=== PATIENT | male | born 1945 | race Caucasian/White ===

== ENCOUNTER 2019-04-08 16:55 | Observation (INO) | payer MEDICARE, MEDICAID, SELFPAY ==
[2019-04-08 16:56] VITALS: BP 154/74; PULSE 72; RESP 15; TEMP 36.8; BMI 18.8
[2019-04-08 17:02] VITALS: O2SAT 100
[2019-04-08] MEDS: Morphine 4 MG/ML Syringe IV ×2 (18:02→19:14)
[2019-04-08] MEDS: predniSONE 20 MG Tablet 60 MG PO (18:02)
--- NOTE | 2019-04-08 18:36 | ED.VIS.BACK ---
History of Present Illness Chief Complaint: Back Informant: Patient Onset: Days Context: Gradual Onset Injury: Lifting, Twisting Timing: Continuous Quality: Sharp Location: Lumbar - right Worsened by: improves with: Movement Relieved by: Remaining Still Narrative: Patient is a 73-year-old male with history of oral pharyngeal cancer status post resection presenting with low back pain. Patient states on Friday, 4 days ago, he was lifting a bag of cement and felt a pull in his right lower back. Since then he has had low back pain. He notes today he was try to get into his truck and twisted slightly. He then had severe low back pain in the same spot. He denies any radiation of pain. He denies any numbness or tingling in his perineal region or in his legs. He denies any difficulty urinating or incontinence. He states he had pain like this in the past and sees a chiropractor. He laid down on the couch but then the pain was so bad he could not get off the couch so his called 911. Patient's been taking Aleve prior to this. He denies any other complaints at this time. He denies any trauma or falls. Prior similar symptoms: Yes, With Prior Back Pain Past Medical History - Allergies and Home Meds Allergies/Adverse Reactions: Allergies No Known Allergies Allergy (Verified 01/26/17 17:32) Past Medical History: - - COPD, skin cancer, tongue cancer Surgical History: noncontributory Lives: Spouse/ Significant Other Smoking Status: Former smoker Alcohol: None Drugs: None - Family History Maternal Family History: Reports: Cancer Sibling Family History: Reports: Heart Disease Paternal Family History: Reports: Unknown Review of Systems General: Denies: Chills, Fever, Sweats Eyes: Denies: Visual changes - bilaterally, Diplopia ENT: Denies: Rhinorrhea, Sore throat Cardiovascular: Denies: Chest pain, Palpitations Respiratory: Denies: Dyspnea, Cough, Dyspnea on exertion Gastrointestinal: Denies: Abdominal pain, Nausea, Vomiting, Diarrhea, Melena, Hematochezia Genitourinary: Denies: Dysuria, Hematuria, Frequency Musculoskeletal: Reports: Back pain. Denies: Neck pain, Extremity Pain Skin: Denies: Rash, Wounds Neurological: Denies: Headache, Weakness, Numbness Physical Exam Vital Signs/Narrative: Vital Signs Temp Pulse Resp BP Pulse Ox 12/05/19 17:02 100 04/08/19 16:56 98.2 F 72 15 154/74 H Inital Vital Signs reviewed: Yes General: Well nourished, Well developed Head: Normocephalic, Atraumatic Eyes: Perrl, EOMI ENT: Moist mucous membranes, No rhinorrhea, - - Edentulous Neck: Supple, Nontender Cardiovascular: Regular rate, Regular rhythm, No murmurs Respiratory: No distress, CTA bilaterally, Chest nontender Abdomen: Soft, Nontender, Nondistended, Normal bowel sounds Back: Normal Inspection, Paraspinal Tenderness - Right paraspinal. Negative for: Spinal tenderness, Positive SLR - Right, Positive SLR - Left Extremeties: Nontender, No edema, Symmetric. Negative for: Tenderness, Edema Skin: Normal color, No rash Neuro: Alert, Oriented, Normal Strength, Normal Sensation, - - Gait not tested secondary to pain Psychological: Normal affect Diagnostic/Tx/Re-eval Laboratory Data 04/08/19 04/08/19 20:30 20:30 WBC 9.4 RBC 4.48 L Hgb 13.6 Hct 40.1 MCV 89.5 MCH 30.4 MCHC 33.9 RDW Std Deviation 40.7 RDW Coeff of Michael 12.4 Plt Count 196 MPV 10.2 Immature Gran % (Auto) 0.300 Neut % (Auto) 89.3 H Lymph % (Auto) 7.4 L [place] % (Auto) 2.4 Eos % (Auto) 0.4 Baso % (Auto) 0.2 Absolute Neuts (auto) 8.4 H Absolute Lymphs (auto) 0.70 L Nucleated RBC % 0 Sodium 138 Potassium 4.0 Chloride 106 Carbon Dioxide 25.0 Anion Gap 7 BUN 14 Creatinine 0.95 Estim Creat Clear Calc 63.47 Est GFR (MDRD) Af Amer 99 Est GFR (MDRD) Non-Af 82 BUN/Creatinine Ratio 14.7 Glucose 136 H Calcium 8.7 - Medical Decision Making Patient is evaluated for low back pain. Patient pulled what felt like a muscle in his lower back a couple days ago and it acutely worsened today. The pain is reproducible with palpation and movement. He does not have a pulsatile mass in his abdomen. He is hemodynamically stable. He is mildly hypertensive I attribute this to his pain. He denies any other associated symptoms. He does not have any red flag symptoms for cauda equina syndrome. He has a normal neurologic exam. He does not have any midline tenderness. Do not think imaging is indicated. He is initially given prednisone and morphine. We did ambulate him and this was unsuccessful secondary to his pain. Patient was given another dose of morphine as well as Valium. Patient was able to ambulate but not very well and with significant pain still. Patient do not feel comfortable going home because of his amount of pain. I feel that this is reasonable. Patient will be admitted for medical management and physical therapy of his back pain. Again I think this is muscle skeletal and patient is hemodynamically stable at time of disposition. He is agreeable with this plan. ED Disposition - Plan for ED Patient: Disposition: Acute Care [facility] Diagnosis: Intractable low back pain
[2019-04-08] MEDS: diazePAM 5 MG Tablet 2.5 MG PO (19:15)
[2019-04-08 19:21] VITALS: BP 111/77; PULSE 61; RESP 16; O2SAT 96
[2019-04-08 20:04] VITALS: TEMP 35.5
[2019-04-08] MEDS: HYDROmorphone 1 MG/ML Syringe 0.5 MG IV (20:38)
[2019-04-08] MEDS: 0.9% Normal Saline 1,000 ML 1000 ML IV (20:38)
[2019-04-08 20:45] LABS: Absolute Neutrophil Count 8.4 X10^3/uL (2.0-7.7); Basophil# 0.02 X10^3/uL; Basophil% 0.2 % (0-1); Eosinophil# 0.04 X10^3/uL; Eosinophils% 0.4 % (0-5); Hematocrit 40.1 % (40-54); Hemoglobin 13.6 g/dL (13.0-16.5); Lymphocyte % 7.4 % (19-41); Mean Corp Hgb Conc 33.9 g/dL (32-36); Mean Corpuscular Hgb 30.4 pg (27.0-32.0); Mean Corpuscular Volume 89.5 fL (80-94); Mean Platelet Vol. 10.2 fl (6.2-12.0); Monocyte# 0.23 X10^3/uL; Monocyte% 2.4 % (0-10); NRBC Flagged by Analyzer 0 % (0-5); Neutrophil % 89.3 % (47-70); Platelet Count 196 K/mm3 (150-450); RBC Distribution Width CV 12.4 % (11.6-14.6); RBC Distribution Width SD 40.7 fl (35.1-43.9); Red Blood Count 4.48 M/mm3 (4.6-6.2); White Blood Count 9.4 K/mm3 (4.4-11.0)
[2019-04-08 21:03] LABS: Anion Gap 7 (5-15); BUN 14 mg/dL (7-18); BUN/Creat Ratio 14.7 RATIO (10-20); Calcium,Total 8.7 mg/dL (8.5-10.1); Chloride 106 mmol/L (98-107); Creatinine, Serum 0.95 mg/dL (0.70-1.30); EST Glomerular Filtration Rate 82 mL/min (>60); Est Glom Filt Rate - Afr Amer 99 mL/min (>60); Estimated Creatinine Clearance 63.47 ml/min; Glucose 136 mg/dL (74-106); Sodium Level 138 mmol/L (136-145)
--- NOTE | 2019-04-08 21:06 | HP.PCM_ITS ---
History of Present Illness Date of Admission: 04/08/19 Chief Complaint: Right-sided back pain The patient is a 73 year old M [facility] as below who presents with right-sided back pain. He says that it started on Friday when he lifted a bag of cement. He was having difficulty with his back pain during the week and then today he was getting into his pickup truck and he twisted his back and had such significant back pain that he was unable to get up and walk. He denies any radiation of his pain down either of his legs, and has no bowel or bladder dysfunction. He denies any perineal numbness, and his tenderness is not in his mid back but on the right paraspinal muscle. In the ER lab work was still pending during my examination, and he received several doses of morphine as well as a dose of Valium without much relief. Past Medical History Past Medical History (Chronic Problems): Chronic Problems Hx of tongue cancer (Chronic) Personal history of skin cancer (Chronic) Acute exacerbation of chronic obstructive airways disease (Chronic) Allergies No Known Allergies Allergy (Verified 01/26/17 17:32) Home Medications: Ambulatory Orders Medication Instructions Recorded Naproxen Sodium [Aleve] 220 mg PO DAILY PRN PRN 04/08/19 Surgical History: - - Tongue resection and jaw reconstruction after oropharyngeal cancel Lives: Spouse/ Significant Other Smoking Status: Former smoker Tobacco Use: Cigarettes Alcohol: None Drugs: None - *Family History Maternal History Items: Cancer Sibling History Items: Heart Disease Paternal History Items: Unknown Review of Systems Constitutional: Denies: Chills, Fever, Weight Change HEENT: Denies: Head Aches, Sinus Congestion, Sinus Drainage Cardiovascular: Denies: Chest Pain, Palpitations Respiratory: Denies: Cough, Shortness of breath at rest, Sputum production Gastrointestinal: Denies: Abdominal Pain, Nausea, Vomiting Genitourinary: Denies: Dysuria Musculoskeletal: Reports: Back Pain - Right paraspinal muscle. Denies: Joint Pain, Joint Tenderness Skin: Denies: Rash, Wounds Neurological: Denies: Numbness, Tingling, Focal weakness Psychiatric: Denies: Anxiety, Depression Hematologic/ Lymphatic: Denies: Easy Bruising, Easy Bleeding VTE Information - Inpt Only VTE Present on Admission: No - Physical Exam Vitals/I&O's: Vital Signs Temp Pulse Resp BP Pulse Ox 96 F L 61 16 111/77 96 04/08/19 20:04 04/08/19 19:21 04/08/19 19:21 04/08/19 19:21 04/08/19 19:21 Oxygen Delivery Method Room Air Weight: 142 lb 13.753 oz Body Mass Index (BMI) 18.8 General: Alert, Oriented x3, Cooperative, No apparent distress HEENT: Atraumatic, PERRLA, EOMI, Normocephalic Oral: Dry Mucosa Neck: Supple, No JVD Lungs: Clear to auscultation, Normal air movement, No rhonchi, No wheeze, No rales, Diminished Cardiovascular: Regular rate, Regular Rhythm, Normal S1, Normal S2, No murmurs Abdomen: Soft, Non Tender, Non-Distended, No Hepato-splenomegaly Extremities: No edema, Capillary Refill Less than 3 Seconds Skin: No rashes, No breakdown Musculoskeletal: Tenderness - To right paraspinal muscle manipulation, - - Back pain with right straight leg raise, no sensation of pain down his leg Neurological: Neuro grossly intact, Sensory exam intact to light touch and pain Psych/Mental Status: Normal Affect, Appropriate Laboratory Results 04/08/19 20:30: WBC 9.4, RBC 4.48 L, Hgb 13.6, Hct 40.1, MCV 89.5, MCH 30.4, MCHC 33.9, RDW Std Deviation 40.7, RDW Coeff of Michael 12.4, Plt Count 196, MPV 10.2, Immature Gran % (Auto) 0.300, Neut % (Auto) 89.3 H, Lymph % (Auto) 7.4 L, [place] % (Auto) 2.4, Eos % (Auto) 0.4, Baso % (Auto) 0.2, Absolute Neuts (auto) 8.4 H, Absolute Lymphs (auto) 0.70 L, Nucleated RBC % 0 04/08/19 20:30: Sodium 138, Potassium 4.0, Chloride 106, Carbon Dioxide 25.0, Anion Gap 7, BUN 14, Creatinine 0.95, Estim Creat Clear Calc 63.47, Est GFR (MDRD) Af Amer 99, Est GFR (MDRD) Non-Af 82, BUN/Creatinine Ratio 14.7, Glucose 136 H, Calcium 8.7 Current Medications Sodium Chloride () 1,000 mls @ 1,000 mls/hr IV .Q1H ONE Stop: 04/08/19 21:30 Last Admin: 04/08/19 20:38 Dose: 1,000 mls/hr Documented by: Assessment/Plan 1. Right sided paraspinal muscle pain and intractable back pain -He is received multiple doses of narcotics in the ER, will hold off on any narcotics during his inpatient stay -We will continue with ibuprofen and Flexeril, can also add Valium if necessary -PT and OT for evaluation -No red flag at this moment to warrant an MRI, no fevers or chills and no midline tenderness 2. History of oropharyngeal cancer -He is status post resection and reconstruction about 5 years ago -given the lack of midline tenderness, do not think that there is any bony metastasis from his cancer 5 years ago DVT: Ambulation Code Visit OBSV E&M: 39983 Initial observation care L2
[2019-04-08 21:28] VITALS: BMI 17.6; BMI 18.8
[2019-04-08 21:30] VITALS: BP 135/71; PULSE 65; RESP 18; TEMP 36.2; O2SAT 96
[2019-04-09 03:20] VITALS: BP 121/66; PULSE 63; RESP 18; TEMP 36.3; O2SAT 97
[2019-04-09] MEDS: cycloBENZAPRine HCl 10 MG Tablet PO ×3 (06:27→22:35)
[2019-04-09 08:39] VITALS: BP 96/50; PULSE 74; RESP 20; TEMP 36.4; O2SAT 96
[2019-04-09 09:00] VITALS: BP 96/50; PULSE 74; RESP 20; TEMP 36.4; O2SAT 96
--- NOTE | 2019-04-09 09:04 | CASEMGMT ---
Social Work Note Per admissions assistant questions, pt has completed LW and HCPOA but hasn't provided copy to [facility] and is not able to bring in copies. Ann Lara INJECTION MOLDING TECHNICIAN, MATRIX BATH ATTENDANT
--- NOTE | 2019-04-09 09:47 | PCM.PROGNOTE ---
Patient Problems: Active and Suspected Problems Intractable low back pain (Acute) Subjective: The patient is a 73-year-old male with a past medical history of cancer of the tongue, skin cancer and COPD who is on no chronic medications at home who presented to the ED at [facility] on 04/08/19 complaining of severe back pain with inability to ambulate. No XRAYS were done of the back in the ED. He received several dose of MS and Valium in the ED last night with no significant improvement. CBC and BMP at admission were unremarkable. He was admitted to the hospital and placed on PRN Motrin and Flexeril. Nursing tells me that the flexeril seemed to work well for him this morning. He rates his pain jasper a 3-4 when lying in bed and an 8-9 when ambulating and bearing weight. He denies any falls. Denies any recent weight loss. Denies any radiation of pain into the legs and also denies urinary or fecal incontinence. No hx of chronic back pain. - Physical Exam Vitals/I&O's: Vital Signs Temp Pulse Resp BP Pulse Ox 97.5 F L 74 20 H 96/50 L 96 04/09/19 08:39 04/09/19 08:39 04/09/19 08:39 04/09/19 08:39 04/09/19 08:39 Oxygen Delivery Method Room Air Weight: 134 lb 4.184 oz Body Mass Index (BMI) 17.6 Intake and Output for Last 24 Hours 04/07/19 04/08/19 04/09/19 23:59 23:59 23:59 Intake Total 1000 / 1000 Output Total 600 / 600 Balance 1000 / 1000 -600 / -600 General: Alert, Oriented x3, Cooperative, No apparent distress - lying in bed HEENT: Atraumatic, PERRLA, EOMI, Normocephalic Oral: Moist Mucosa Neck: Supple, No Nodes, No Nuchal Rigidity, Trachea Midline Lungs: Clear to auscultation Cardiovascular: Regular rate, Regular Rhythm, Normal S1, Normal S2, No Gallop Abdomen: Bowel Sounds Present, Soft, Non Tender, Non-Distended, - - No guarding with palpation Extremities: No edema Skin: No rashes, No breakdown Neurological: - - Negative straight leg raising bilaterally. Negative Fidel's test bilaterally. 5/5 strength in both lower extremities. examination of the low back reveals no erythema and no ecchymosis. Pain is predominantly in the R low back. no significant Myospasm. Psych/Mental Status: Normal Affect, Appropriate Laboratory Results 04/08/19 20:30: WBC 9.4, RBC 4.48 L, Hgb 13.6, Hct 40.1, MCV 89.5, MCH 30.4, MCHC 33.9, RDW Std Deviation 40.7, RDW Coeff of Michael 12.4, Plt Count 196, MPV 10.2, Immature Gran % (Auto) 0.300, Neut % (Auto) 89.3 H, Lymph % (Auto) 7.4 L, [place] % (Auto) 2.4, Eos % (Auto) 0.4, Baso % (Auto) 0.2, Absolute Neuts (auto) 8.4 H, Absolute Lymphs (auto) 0.70 L, Nucleated RBC % 0 04/08/19 20:30: Sodium 138, Potassium 4.0, Chloride 106, Carbon Dioxide 25.0, Anion Gap 7, BUN 14, Creatinine 0.95, Estim Creat Clear Calc 63.47, Est GFR (MDRD) Af Amer 99, Est GFR (MDRD) Non-Af 82, BUN/Creatinine Ratio 14.7, Glucose 136 H, Calcium 8.7 Current Medications Cyclobenzaprine HCl (Flexeril) 10 mg PO TID PRN PRN PRN Reason: back pain Last Admin: 04/09/19 06:27 Dose: 10 mg Documented by: Ibuprofen (Motrin) 400 mg PO Q4H PRN PRN PRN Reason: Pain Score 1-3/Temp > 100.7 F Nutritional Formula (Lactose Free) (Ensure Enlive) 120 ml PO 4X/DAY [facility] Last Admin: 04/09/19 08:30 Dose: 120 ml Documented by: Sodium Chloride () 10 - 40 ml IV UD PRN PRN Reason: SALINE FLUSH Medical Necessity - Tobacco Use Smoking Status: Former smoker Tobacco Use: Cigarettes Assessment/Plan All Active Problems Intractable low back pain (Acute) Impressions 1. intractable low back pain with inability to ambulate. More likely than not secondary to strain. Plain XRAYS of the spine obtained today show no fx or dislocation. disc spaces appear to be well maintained. He does have some anterior spurs. Official radiology report is pending. There is a lot of stool in the R colon. There is calcification of the abd aorta. schedule Flexeril and Motrin TID. Re-evaluate in the AM PT will see him today. Code Visit OBSV E&M: 29521 Subsequent observation care L2
--- NOTE | 2019-04-09 12:10 | CASEMGMT ---
RN MORIAH ATTRACTION ATTENDANT CM to room to meet with patient for initial transition planning/care coordination assessment. RN MORIAH introduced self and role at [facility]. Pt voices understanding and consents to assessment at this time. Pt resting in bed in no distress at this time. Pt is A/O at this time and answers all questions appropriately. Care providers, pharmacy, and demographics verified/updated at this time. PCP: Dr Nataly Kidd Specialists: Denies Preferred Pharmacy: [facility] Insurance: [facility] Prescription Benefit: Yes Living Will/HPOA: has both LW and HCPOA, who is his ex-, Mya Pierson. Copies not found on file @ [facility]. Pt aware and states he thinks he knows where the paperwork is and will try to have brought in if he can locate them. Pt made aware if he is unable to locate them, that SW can assist him w/completing papework again if he chooses. Given Principal Systems Engineer Rac card and made aware can make an appt to come in as an out-pt if he would like to. Pt voices appreciation. LNOK: Only wanted ex- listed on demographics. Living Arrangements: Lives with his ex- in a one-story home w/3 steps to enter. is independent with Personal ADL's. States his ex- does the meals, grocery shopping, laundry, and cleaning. Transportation: Pt drives self and states no transportation concerns at this time. Mya also drives and will take him home @ discharge. DME: Denies using any DME and denies needs. has a walker but does not use it and thinks they have a shower chair available. HHC/SNF: No history of SNF. Has used HHC in the past but does not remember the name of the agency. Pt wishes to return home and has no concerns with going home at time of discharge. He states he is not sure if he would like to do OP therapy, stating last year when something similar happened, I just went to a chiropractor 3 times and then I was better. would be interested in getting a script for OP therapy so if he does decide to go, that he will have it. CM to follow for any further discharge planning/needs. Pt voices no further concerns/needs at this time. Advised pt to ask for CM if any further questions/concerns/needs arise. Voices understanding. PLAN: Home. States may be interested in doing OP therapy, but is unsure. He would like a script for OP therapy to take to a location of choice if he chooses to go to therapy. Moshe ODONNELLN RN CM
[2019-04-09] MEDS: Ibuprofen 600 MG Tablet PO ×2 (13:12→22:35)
[2019-04-09 16:01] VITALS: BP 104/51; PULSE 73; RESP 18; TEMP 36.4; O2SAT 95
--- NOTE | 2019-04-09 19:48 | NURSING ---
1946 Patient taken to Xray
--- NOTE | 2019-04-09 19:50 | RAD_ITS ---
STUDY: X-RAY - LUMBAR SPINE REASON FOR EXAM: Male, 73 years old. Severe low back pain after lifting cement 4 days ago TECHNIQUE: 3 view(s) of the lumbar spine were obtained. COMPARISON: None FINDINGS: Normal lumbar lordosis. There is no substantial scoliosis. There is a normal alignment of the vertebrae. There is multilevel endplate spondylosis of the lumbar vertebrae. There is multi-level degenerative disc disease with multi-level disc space narrowing. There is no demonstrated fracture. There is atherosclerotic calcification of the abdominal aorta without a demonstrated aneurysm. RAD/Lumbar Spine 2 or 3 Views IMPRESSION: Degenerative changes of the spine, as detailed above. Electronically Signed: Hank Bee MD at 23:15 EST , Service support ,
[2019-04-09 22:00] VITALS: BP 131/82; PULSE 56; RESP 20; TEMP 36.6; O2SAT 98
[2019-04-10 02:08] VITALS: BP 130/69; PULSE 54; RESP 18; TEMP 36.4; O2SAT 92
[2019-04-10] MEDS: cycloBENZAPRine HCl 10 MG Tablet PO (06:28)
[2019-04-10] MEDS: Ibuprofen 600 MG Tablet PO (06:28)
[2019-04-10 09:00] VITALS: BP 138/76; PULSE 60; RESP 18; TEMP 36.4; O2SAT 97
--- NOTE | 2019-04-10 10:07 | PCM.DC ---
- Discharge Diagnoses Current Active Problems: Current Active and Chronic Problems Intractable low back pain (Acute) You will use the following diet at home:: Regular Your food should be the consistency of: Regular Discharge Activity: May Not Drive Call your doctor if you observe: Fever of 101 or Higher, Inability to urinate, Inability to have a bowel movement, Shortness of breath, Dizziness, Fainting spells, Swelling in the ankles, Chest pain, Prolonged hiccoughing, Increased palpitations (irregular heartbeat), Uncontrolled pain Allergies/Adverse Reactions: Allergies No Known Allergies Allergy (Verified 01/26/17 17:32) Medications to take at Discharge Naproxen Sodium [Aleve] 220 mg PO BID PRN PRN #0 04/10/19 cycloBENZAPRine HCl [Flexeril] 10 mg PO Q8H PRN PRN #30 tab 04/10/19 traMADol [Ultram] 50 mg PO Q6H PRN PRN 3 Days #10 tablet 04/10/19 The following prescriptions were given: cycloBENZAPRine HCl [Flexeril] 10 mg PO Q8H PRN PRN #30 tab PRN Reason: muscle spasm Transmission Status: Pending to [facility] 074 traMADol [Ultram] 50 mg PO Q6H PRN PRN 3 Days #10 tablet PRN Reason: Pain Score 6-10/10 Transmission Status: Received by [facility] [id number] Primary Care Physician: Nataly Kidd NP-C [Primary Care Provider] - Please follow up with your Primary Care Physician in: in 1-2 weeks Test Results: Test results from this visit will be discussed in further detail at your follow-up appointment, if applicable.
--- NOTE | 2019-04-10 10:10 | DS.PCM_ITS ---
Discharge Date and Diagnosis - Problem List Patient Problems: Active and Suspected Problems Intractable low back pain (Acute) Date of Admission: 04/08/19 Date of Discharge: 04/10/19 - Primary Discharge Diagnosis Active and Suspected Problems Intractable low back pain (Acute) - Secondary Discharge Diagnosis Chronic Problems Hx of tongue cancer (Chronic) Personal history of skin cancer (Chronic) Acute exacerbation of chronic obstructive airways disease (Chronic) Hospital Course and Treatment Summary of Care Provided: The patient is a 73 year old M with multiple comorbidities as mentioned above including cancer of the tongue, COPD was admitted with acute severe back pain lumbar area when he lifted heavy cement back. Patient was admitted on 04/08 for severe back pain with inability to ambulate. Patient was admitted after he did not respond to several doses of morphine and Valium in ER. Lumbar x-ray was done which shows degenerative changes. Patient was being evaluated by PT and OT and recommended outpatient rehab for 3 days of heat and moist heat for pain control. Pain is much controlled. [] Discharge medication reconciliation done. Discharge follow-up instructions completed. Discharge process discussed with the patient and all questions were answered to patient's satisfaction. Prescription for tramadol and Flexeril sent to patient pharmacy. Patient can take Aleve 220 mg twice daily for 5 days and then as needed. Total time spent, exact 35 minutes on discharge meds reconciliation, examination, review of imaging and blood test and discussion with the patient on follow-up instructions. Patient Problems: Active and Suspected Problems Intractable low back pain (Acute) Subjective: Seen and examined. His back pain is much better. Patient is sitting up in the bed. Patient was seen by PT and OT. Blood pressure and heart rate is controlled. Hemodynamically stable - Physical Exam Vitals/I&O's: Vital Signs Temp Pulse Resp BP Pulse Ox 97.5 F L 60 18 138/76 H 97 04/10/19 09:00 04/10/19 09:00 04/10/19 09:00 04/10/19 09:00 04/10/19 09:00 Oxygen Delivery Method Room Air Weight: 134 lb 4.184 oz Body Mass Index (BMI) 17.6 Intake and Output for Last 24 Hours 04/08/19 04/09/19 04/10/19 23:59 23:59 23:59 Intake Total 1000 / 1000 100 / 100 Output Total 1300 / 2000 1050 / 1050 Balance 1000 / 1000 -1300 / -1900 -950 / -950 General: Alert, Oriented x3, Cooperative HEENT: Atraumatic, PERRLA, EOMI, Normocephalic Neck: Supple, No JVD, Negative Carotid Bruits Lungs: Clear to auscultation, Normal air movement, No rhonchi, No wheeze, No rales Cardiovascular: Regular rate, Regular Rhythm, Normal S1, Normal S2, No murmurs Abdomen: Bowel Sounds Present, Soft, Non Tender, Non-Distended Extremities: No edema, Capillary Refill Less than 3 Seconds Skin: No rashes, No breakdown Musculoskeletal: Arthritic Changes, Tenderness - Lumbar and right paraspinal area Neurological: Cranial nerves II-XII grossly intact, Deep Tendon Reflexes 2+/4 and Symmetrical, Neuro grossly intact Psych/Mental Status: Normal Affect, Appropriate Current Medications Cyclobenzaprine HCl (Flexeril) 10 mg PO Q8H [facility] Last Admin: 04/10/19 06:28 Dose: 10 mg Documented by: Ibuprofen (Motrin) 600 mg PO TID [facility] Last Admin: 04/10/19 06:28 Dose: 600 mg Documented by: Nutritional Formula (Lactose Free) (Ensure Enlive) 120 ml PO 4X/DAY [facility] Last Admin: 04/09/19 22:37 Dose: Not Given Documented by: Oxycodone HCl (Oxyir) 5 mg PO Q4H PRN PRN PRN Reason: Pain Score 6-10/10 Sodium Chloride () 10 - 40 ml IV UD PRN PRN Reason: SALINE FLUSH Discharge Activity: May Not Drive Call your doctor if you observe: Fever of 101 or Higher, Inability to urinate, Inability to have a bowel movement, Shortness of breath, Dizziness, Fainting spells, Swelling in the ankles, Chest pain, Prolonged hiccoughing, Increased palpitations (irregular heartbeat), Uncontrolled pain Home Medications: Medications to take at Discharge Naproxen Sodium [Aleve] 220 mg PO BID PRN PRN #0 04/10/19 cycloBENZAPRine HCl [Flexeril] 10 mg PO Q8H PRN PRN #30 tab 04/10/19 traMADol [Ultram] 50 mg PO Q6H PRN PRN 3 Days #10 tab 04/10/19 Following Prescrptions Were Given to Patient: cycloBENZAPRine HCl [Flexeril] 10 mg PO Q8H PRN PRN #30 tab PRN Reason: muscle spasm Transmission Status: Received by [facility] 074 traMADol [Ultram] 50 mg PO Q6H PRN PRN 3 Days #10 tab PRN Reason: Pain Score 6-02/11 Transmission Status: Received by [facility] 074 Primary Care Physician: Nataly Kidd NP-C [Primary Care Provider] - Please follow up with your Primary Care Physician in: in 1-2 weeks Medical Necessity - Tobacco Use Smoking Status: Former smoker Tobacco Use: Cigarettes Meaningful Use Info Meaningful Use Diagnoses (Choose all that apply): None applicable Code Visit OBSV E&M: 68023 Observation care discharge
== END 2019-04-10 11:35 | disposition home or self-care (01) ==
LOC: ED 17:49 → MS3 21:01
PROVIDERS: Admitting Provider Family Medicine; Emergency Provider Emergency Medicine; Family Provider Registered Nurse; PCP Registered Nurse; Referring Provider Family Medicine; Visit Provider Internal Medicine
DX: M54.5 Low back pain (principal); Z85.828 Personal history of other malignant neoplasm of skin; Z85.810 Personal history of malignant neoplasm of tongue; J44.9 Chronic obstructive pulmonary disease, unspecified; Z87.891 Personal history of nicotine dependence
CPT/HCPCS: 72100; 80048; 85025; 96374; 96375; 96376; 97162; 97166; 97802; 99218; 99285; J7030; A4216; G0378

== ENCOUNTER → 2021-07-23 08:39 | Outpatient (CLI) | payer MEDICARE, MEDICAID, SELFPAY ==
--- NOTE | 2021-07-23 08:44 | AAAS_ITS ---
Reason For Study: Screening for AAA, smoking history Aorta Measurements Aorta Doppler Measurements Proximal aorta measures1.68 x 1.66cm. in cross- Peak systolic flow velocities within the proximal sectional axis. aorta measure 61.6 cm/sec. Proximal aorta measures1.69cm. in longitudinal Peak systolic flow velocities within the mid aorta axis. measure 45 cm/sec. Mid aorta measures1.55 x 1.55cm. in cross- Peak systolic flow velocities within the distal sectional axis. aorta measure 66.8 cm/sec. Mid aorta measures1.54cm. in longitudinal axis. Distal aorta measures1.37 x 1.39cm. in cross- sectional axis. Distal aorta measures1.38cm. in longitudinal axis. Left Iliac Artery Left iliac artery measures 0.75 x 0.71 cm. in the cross-sectional axis. Left iliac artery measures 0.74 cm. in the longitudinal axis. Peak systolic velocity in the left iliac artery measures 97.9 cm/sec. Right Iliac Artery Right iliac artery measures 0.58 x 0.59 cm. in the cross-sectional axis. Right iliac artery measures 0.61 cm. in the longitudinal axis. Peak systolic velocity in the right iliac artery measures 108.9 cm/sec. Procedure Aorta IVC Iliac vasculature or bypass grafts 23621. Exam performed in department. VL/AAA Screening Interpretation Summary The dimensions of the intra-abdominal aorta appear normal, without evidence of aneurysmal dilatation. The iliac arteries appear normal in caliber bilaterally. The intra- abdominal aorta and iliac arteries appear patent, demonstrating normal pulsatile arterial flow and normal peak systolic velocities. Ordering Physician: SIMÓN BADILLO Referring Physician: Nataly Kidd Performed By: Ann Victor RVT
== END ==
PROVIDERS: PCP Registered Nurse
DX: Z13.6 Encounter for screening for cardiovascular disorders (principal); F17.200 Nicotine dependence, unspecified, uncomplicated
CPT/HCPCS: 76706

== ENCOUNTER → 2023-10-17 | Outpatient (CLI) | payer MEDICARE, MEDICAID, SELFPAY ==
--- NOTE | 2023-10-17 14:30 | CT_ITS ---
EXAM: CT NECK WITH INTRAVENOUS CONTRAST CLINICAL INDICATION: Localized swelling, mass and lump, head TECHNIQUE: Helically acquired images were obtained of the neck with intravenous contrast. This CT exam was performed using one or more of the following dose reduction techniques: automated exposure control, adjustment of the mA and/or kV according to patient size, and/or use of iterative reconstruction technique. CONTRAST: [id number] 75ML COMPARISON: No relevant prior studies available. FINDINGS: NASOPHARYNX: No significant abnormality. SUPRAHYOID NECK: Asymmetric appearance of the tongue likely related to the history of partial glossectomy. INFRAHYOID NECK: No significant abnormality. The larynx, hypopharynx and supraglottis are unremarkable. SUBMANDIBULAR/PAROTID GLANDS: No significant abnormality. Glands are normal in size. THYROID: No significant abnormality. No enlarged or calcified nodules. SINUSES: Postoperative changes of the paranasal sinuses with right-sided uncinectomy and middle turbinoplasty. ORBITS: Bilateral ocular lens extraction presumptively for the treatment of cataracts. Otherwise, no acute orbital pathology. DENTAL: The patient is edentulous. BONES/JOINTS: Degenerative changes in the spine. Evidence of likely partial mandibulectomy and reconstruction with likely autologous bone graft and plate-screw fixation. Mild bilateral TMJ arthrosis. No acute fracture. SOFT TISSUES: No discrete mass or pathologic fluid collection is identified particularly in the facial soft tissues. VASCULATURE: Atherosclerosis of the carotid arteries in the neck without critical stenosis. LYMPH NODES: Evidence of what appears to be right lateral neck dissection presumptively for lymphadenectomy. No abnormal lymph nodes are present. LUNG APICES: Centrilobular emphysematous changes of the lung bases with apical scarring and bullae formation particularly on the left. CT/Soft Tissue Neck WITH Contrast IMPRESSION: 1. No discrete mass or pathologic fluid collection is identified particularly in the facial soft tissues. Evidence of likely partial mandibulectomy and reconstruction with likely autologous bone graft and plate-screw fixation. Evidence of what appears to be right lateral neck dissection presumptively for lymphadenectomy. Asymmetric appearance of the tongue likely related to the history of partial glossectomy. Correlate with history. 2. Centrilobular emphysematous changes of the lung bases with apical scarring and bullae formation particularly on the left. Electronically Signed: Dandy Sagastume DO at 20:13 EDT ,
[2023-10-17 14:55] LABS: CREATININE FINGERSTICK < 1.0 mg/dL (0.70-1.30); EGFR FINGERSTICK > 60.0000 mL/min (>60)
== END | disposition home or self-care (01) ==
PROVIDERS: PCP Registered Nurse; Referring Provider Otolaryngology; Visit Provider Otolaryngology
DX: R22.0 Localized swelling, mass and lump, head (principal)
CPT/HCPCS: 70491; Q9967